=== PATIENT | female | born 1960 | race Caucasian/White ===

== ENCOUNTER 2025-09-22 15:37 | Emergency (ER) | payer MEDICARE, MEDICAID ==
[~2025-09-22] VITALS: Ht 160 cm; Wt 94.8 kg
[2025-09-22 17:58] VITALS: BP 166/79; TEMP 97.4; O2SAT 96
== END 2025-09-22 18:07 | disposition home or self-care (01) ==
LOC: M ED 15:37
DX: M19.032 Primary osteoarthritis, left wrist (principal); F17.200 Nicotine dependence, unspecified, uncomplicated

== ENCOUNTER → 2025-10-18 | Outpatient (REF) | payer MEDICARE, MEDICAID | LOC: M LAB REF 14:10 | PROVIDERS: ATTEND Internal Medicine | DX: M25.50 Pain in unspecified joint (principal) ==